=== PATIENT | female | born 1970 | race Two or more races ===

== ENCOUNTER 2019-10-07 14:53 | Emergency (ER) | payer MEDICAID ==
[~2019-10-07] VITALS: Ht 157.5 cm; Wt 63.5 kg
--- NOTE | 2019-10-07 15:04 | NUR ---
CAME IN FOR BLE PAIN X 2 WEEKS. SENT BY PMD TO R/O DVT. TO ER BED 9, HOOKED TO MONITOR, CHANGED TO HOSP GOWN, PROVIDED W WARM BLANKET, DR GARCIA AT BEDSIDE
--- NOTE | 2019-10-07 15:36 | NUR ---
FAN ENGINE ENGINEER AT BEDSIDE FOR SAULO
--- NOTE | 2019-10-07 16:02 | NUR ---
Patient discharged to home in stable condition. Written and verbal after care instructions given. Patient verbalizes understanding of instruction.
[2019-10-07 16:03] VITALS: BP 132/80
== END 2019-10-07 16:04 | disposition home or self-care (01) ==
LOC: ER 14:53
DX: S80.12XA Contusion of left lower leg, initial encounter (principal); M79.661 Pain in right lower leg; Z88.6 Allergy status to analgesic agent; X58.XXXA Exposure to other specified factors, initial encounter; Y93.89 Activity, other specified; Y92.89 Other specified places as the place of occurrence of the external cause; Y99.8 Other external cause status
CPT/HCPCS: 93970-TC

== ENCOUNTER → 2020-08-15 | Emergency (ER) | payer MEDICAID ==
[~2020-08-15] VITALS: Ht 157.5 cm; Wt 68.0 kg
[2020-08-15 16:38] VITALS: BP 132/78
[2020-08-15 18:24] LABS: BILIRUBIN,URINE Negative (NEGATIVE); COLOR,URINE YELLOW (YELLOW); LEUKOCYTE ESTERASE ,URINE Negative (NEGATIVE); NITRITE, URINE Negative (NEGATIVE); PH,URINE 7.5 (5.0-8.0); PROTEIN,URINE Negative (NEGATIVE); UGLUCOSE Negative (NEGATIVE); UROBILINOGEN,URINE 0.2 EU/dL (0.2)
[2020-08-15 18:28] LABS: BACTERIA,URINE Rare /HPF (None Seen); SQUAMOUS EPITHELIAL CELL,UR Few /HPF (None Seen); WBC,URINE NONE SEEN /HPF (0-3)
== END ==
LOC: ER 16:14
DX: S83.8X2A Sprain of other specified parts of left knee, initial encounter (principal); S13.8XXA Sprain of joints and ligaments of other parts of neck, initial encounter; S20.212A Contusion of left front wall of thorax, initial encounter; S40.012A Contusion of left shoulder, initial encounter; S50.12XA Contusion of left forearm, initial encounter; S09.8XXA Other specified injuries of head, initial encounter; R42 Dizziness and giddiness; Z88.5 Allergy status to narcotic agent; Z60.2 Problems related to living alone; V49.59XA Passenger injured in collision with other motor vehicles in traffic accident, initial encounter; Y93.89 Activity, other specified; Y92.488 Other paved roadways as the place of occurrence of the external cause; Y99.8 Other external cause status
CPT/HCPCS: 70450-TC; 71045-TC; 72125-TC; 73030-TC; 73564-TC; 81001; 84703-TC